=== PATIENT | female | born 1995 | race Caucasian/White ===

== ENCOUNTER 2022-03-10 17:08 | Emergency (ER) | payer SELFPAY ==
[~2022-03-10] VITALS: Ht 172.7 cm; Wt 65.8 kg
[2022-03-10] MEDS ORDERED: BUPRENORPHIN-N1 EAC1 SL (19:56)
== END 2022-03-10 20:54 | disposition home or self-care (01) ==
LOC: ER 17:08
DX: T40.411A Poisoning by fentanyl or fentanyl analogs, accidental (unintentional), initial encounter (principal); R40.4 Transient alteration of awareness; F11.11 Opioid abuse, in remission
CPT/HCPCS: 93005; 93010; A9270